=== PATIENT | male | born 2000 | race Two or more races ===

== ENCOUNTER 2025-09-09 18:10 | Emergency (ER) | payer SELFPAY ==
[~2025-09-09] VITALS: Ht 188 cm; Wt 81.6 kg
[2025-09-09 18:20] VITALS: TEMP 98.6
[2025-09-09] MEDS ORDERED: IPRATROPIUM NEB FS 0.5 MG/2.5 ML AMPUL.NEB ONE (18:37)
[2025-09-09] MEDS ORDERED: ALBUTEROL FS 2.5 MG/3 ML VIAL.NEB ONE (18:37)
[2025-09-09 18:42] VITALS: O2SAT 96
[2025-09-09] MEDS: IPRATROPIUM NEB FS 0.5 MG/2.5 ML AMPUL.NEB NEB ONE (18:42)
[2025-09-09] MEDS: ALBUTEROL FS 2.5 MG/3 ML VIAL.NEB NEB ONE (18:42)
[2025-09-09 19:41] VITALS: O2SAT 100
[2025-09-09] MEDS ORDERED: ALBU8.5H8 INH (20:02)
[2025-09-09] MEDS ORDERED: PRED50TA PO (20:02)
[2025-09-09 20:59] VITALS: BP 115/65; O2SAT 97
== END 2025-09-09 20:20 | disposition home or self-care (01) ==
LOC: ER 18:12
DX: R06.02 Shortness of breath (principal); R09.81 Nasal congestion; J45.909 Unspecified asthma, uncomplicated; Z79.52 Long term (current) use of systemic steroids; Z20.822 Contact with and (suspected) exposure to COVID-19
CPT/HCPCS: 99284; 71045; 87426; 87804 ×2; 94640; J7512